=== PATIENT | male | born 1945 | race Hispanic/Latino ===

== ENCOUNTER 2024-05-06 09:25 | Emergency (ER) | payer OTHER ==
[~2024-05-06] VITALS: Ht 177.8 cm; Wt 95.3 kg
[~2024-05-06 09:25] MED LIST: LISI30TA4 PO; MONT-46 PO
--- NOTE | 2024-05-06 09:38 | EKG ---
[facility] Test Date: 2024-05-06 Test Time: 09:36:25 Pat Name: SHELLEY ALEXANDRA Department: ED Room: Gender: Male Office Secretary: [id number] : 1945 Requested By: MERLYN FOSTER Order Number: [id number] Reading MD: Measurements Intervals [place] Rate: 73 P: 11 CA: 175 QRS: -21 QRSD: 92 T: 70 QT: 403 QTc: 445 Interpretive Statements Sinus rhythm Please click the below link to view image of tracing.
[2024-05-06] MEDS: IpraTROPium/alBUTERol SULFATE 3 ML SOLUTION IH ONE (10:11)
[2024-05-06 10:15] VITALS: PULSE 71; RESP 20
--- NOTE | 2024-05-06 10:17 | HMCIMG ---
CHEST 1VW HISTORY: Cough COMPARISON: 07/25/2016 FINDINGS: A frontal projection of the chest was obtained. No acute pulmonary infiltrates is seen. The heart is borderline enlarged. Degenerative changes are seen. No evidence of aortic calcification is seen. IMPRESSION: 1. No acute pulmonary infiltrate is seen.
[2024-05-06 10:18] LABS: BASOPHILS # (AUTO) 0.05 K/uL (0.00-0.20); BASOPHILS % (AUTO) 0.9 % (0.0-5.0); EOSINOPHILS # (AUTO) 0.44 K/uL (0.00-0.70); EOSINOPHILS % (AUTO) 7.9 % (0.0-8.0); HEMATOCRIT 38.5 % (42-54); IMMATURE GRANULOCYTE ABSOLUTE 0.04 K/uL (0-1); LYMPHOCYTES # (AUTO) 1.3 K/uL (1.0-4.8); LYMPHOCYTES % (AUTO) 22.4 % (21.0-51.0); MEAN CORPUSCULAR HEMOGLOBIN 31.8 pg (27.0-33.0); MEAN CORPUSCULAR HGB CONC 34.3 g/dL (32.0-36.0); MEAN CORPUSCULAR VOLUME 92.8 fL (79-99); MONOCYTES # (AUTO) 0.5 K/uL (0.1-1.0); MONOCYTES % (AUTO) 8.2 % (3.0-13.0); NEUTROPHILS # (AUTO) 3.3 K/uL (1.8-7.7); NEUTROPHILS % (AUTO) 59.9 % (40.0-77.0); PLATELET COUNT (AUTO) 143 K/uL (130-400); RED BLOOD CELL COUNT(AUTO) 4.15 MIL/uL (4.50-6.20); RED CELL DISTRIBUTION WIDTH 14.3 % (11.0-15.5); WHITE BLOOD COUNT (AUTO) 5.6 K/uL (4.8-10.8)
--- NOTE | 2024-05-06 10:31 | ERN ---
ED Note History of Present Illness Stated Complaint: SOB, COUGH, CONGESTION, CP W/ COUGH X 2 WKS Chief Complaint: Shortness of Breath Time Seen by MD: 09:28 Dictation: 79-year-old male with history of COPD presents to the ED for evaluation of shortness a breath worsening this morning. Patient reports cough for the past 2 weeks and chest pain, but denies any fever, vomiting or any other associated s ymptoms at this time. Patient states he gets chest pain when he coughs a lot and has been taking Mucinex and NyQuil at home without improvement. Allergies: Coded Allergies: No Known Drug Allergies (Unverified Allergy, Unknown, 07/25/16) Home Meds Active Scripts Albuterol Sulfate (Ventolin Hfa/Proventil Hfa/Proair Hfa) 90 Mcg Puff, 1-2 PUFF IH Q4H PRN for SHORTNESS OF BREATH for 5 Days, #1 INH 0 Refills PHARMACY TO DISPENSE 1 INHALER FOR USE Prov:MERLYN FOSTER MD 05/06/24 Azithromycin (Azithromycin) 250 Mg Tablet, 250 MG PO AD for cough for 5 Days, #6 TAB Prov:MERLYN FOSTER MD 05/06/24 Reported Medications Montelukast Sodium (Singulair 10Mg) 10 Mg Tab, 10 MG PO AM, TAB 07/25/16 Lisinopril (Lisinopril) 30 Mg Tablet, 30 MG PO AM, TAB 07/25/16 Past Medical History Past Medical History: High Cholesterol, Hypertension Surgical History: Other Surgical History Other: KNEE, SINUS Review of System Dictation Constitutional: Negative for fever,chills, and weight loss Eyes: Negative for injury, pain,redness, and discharge ENT: Negative for injury,pain or swelling Cardiovascular: Positive for chest pain negative for palpitations, and edema Respiratory: Positive for shortness a breath and cough Abdomen/GI: Negative for abdominal pain, nausea, vomiting, diarrhea, and constipation Back: Negative for injury and pain : Negative for injury, bleeding and discharge MS/Extremity: Negative for injury and deformity Skin: Negative for rash, and discoloration Neuro: Negative for headache, weakness, numbness, tingling, and seizure Psych: Negative for suicide ideation, homicidal ideation, and hallucinations Initial Vital Sign VS Vital Signs Date Time Temp Pulse Resp B/P (MAP) Pulse Ox O2 Delivery O2 Flow Rate FiO2 05/06/24 09:26 98.2 83 16 171/90 96 Room Air 0 05/06/24 13:09 21 Physical Exam Dictation General: awake, alert, NAD Head/Face: Normocephalic, atraumatic Eyes: PERRL, EOMI, vision at baseline ENT: oral cavity clear, TMs clear, no signs of infection Neck: Trachea midline, supple, no nuchal rigidity Cardiovascular: RRR, normal S1/S2, No MRGs, no JVD Respiratory: no respiratory distress, moderate bilateral wheezes Abdomen: Soft, non-tender, non-distended, normal bowel sounds, no guarding or rebound. Skin: Warm, dry, normal turgor, no rash MS/Extremity: Pulses equal, no cyanosis, neurovascular intact, FROM Neuro: COAx4, GCS 15, strength 5/5, CN 2-12 intact, normal cerebellar exam, normal gait, Psych: Normal behavior, mood, and affect normal Results (Laboratory/Radiology) Laboratory/Radiology Laboratory Tests Test 05/06/24 10:10 05/06/24 10:19 White Blood Count 5.6 K/uL (4.8-10.8) Red Blood Count 4.15 MIL/uL (4.50-6.20) L Hemoglobin 13.2 g/dL (14.0-18.0) L Hematocrit 38.5 % (42-54) L Mean Corpuscular Volume 92.8 fL (79-99) Mean Corpuscular Hemoglobin 31.8 pg (27.0-33.0) Mean Corpuscular Hemoglobin Concent 34.3 g/dL (32.0-36.0) Red Cell Distribution Width 14.3 % (11.0-15.5) Platelet Count 143 K/uL (130-400) Mean Platelet Volume 9.2 fL (7.5-10.5) Immature Granulocyte % (Auto) 0.7 % (0-1) Neutrophils (%) (Auto) 59.9 % (40.0-77.0) Lymphocytes (%) (Auto) 22.4 % (21.0-51.0) Monocytes (%) (Auto) 8.2 % (3.0-13.0) Eosinophils (%) (Auto) 7.9 % (0.0-8.0) Basophils (%) (Auto) 0.9 % (0.0-5.0) Neutrophils # (Auto) 3.3 K/uL (1.8-7.7) Lymphocytes # (Auto) 1.3 K/uL (1.0-4.8) Monocytes # (Auto) 0.5 K/uL (0.1-1.0) Eosinophils # (Auto) 0.44 K/uL (0.00-0.70) Basophils # (Auto) 0.05 K/uL (0.00-0.20) Absolute Immature Granulocyte (auto 0.04 K/uL (0-1) Nucleated Red Blood Cells 0.0 % (0.0-0.19) Sodium Level 140 mmol/L (136-145) Potassium Level 4.2 mmol/L (3.5-5.1) Chloride Level 101 mmol/L (101-111) Carbon Dioxide Level 30 mmol/L (21-32) Blood Urea Nitrogen 20 mg/dL (7-18) H Creatinine 1.1 mg/dL (0.5-1.3) Glomerular Filtration Rate Calc 68 mL/min (>90) Random Glucose 113 mg/dL (70-105) H Lactic Acid Level 1.7 mmol/L (0.8-2.5) Total Calcium 8.8 mg/dL (8.5-10.1) Total Bilirubin 0.7 mg/dL (0.2-1.0) Direct Bilirubin 0.1 mg/dL (0.0-0.3) Aspartate Amino Transf (AST/SGOT) 20 U/L (10-37) Alanine Aminotransferase (ALT/SGPT) 30 U/L (12-78) Alkaline Phosphatase 101 U/L (50-136) Total Creatine Kinase 137 U/L (21-232) Troponin I High Sensitivity 7 ng/L (4-75) B-Type Natriuretic Peptide 45 pg/mL (0-100) Total Protein 6.9 g/dL (6.0-8.3) Albumin 3.4 g/dL (3.5-5.0) L Influenza Type A Antigen Negative For Type A Influenza Type B Antigen Negative For Type B SARS-CoV-2 Antigen (Rapid) PRESUMPTIVE NEGATIVE Labs Reviewed?: Yes EKG Comment: EKG 05/06/2024 time 9:36 a.m. ventricular rate 73, [place] 175, QRS D 92, QT 403. Sinus rhythm. No STEMI ED Course ED Course Orders Procedure Category Date Status Time 12 Lead Ekg Tracing- EKG 05/06/24 Complete Technical 09:31 Chest 1vw RAD 05/06/24 Resulted 09:31 Influenza Type A & B, LAB 05/06/24 Complete Rapid 09:37 B-Type Natriuretic LAB 05/06/24 Complete Peptide 09:37 Basic Metabolic Panel LAB 05/06/24 Complete 09:37 Cbc With Differential LAB 05/06/24 Complete 09:37 Creatine Kinase, Total LAB 05/06/24 Complete 09:37 Hepatic Function Panel LAB 05/06/24 Complete 09:37 Lactic Acid LAB 05/06/24 Complete 09:37 Blood Cult SRUTHI 05/06/24 In Process 09:37 Troponin I High LAB 05/06/24 Complete Sensitivity 09:37 Covid19 (Sars Antigen LAB 05/06/24 Complete Rapid) 09:37 Methylprednisolone PHA 05/06/24 Complete Succ 125mg (Solu-Medr 10:00 Ipratropium/Albuterol PHA 05/06/24 Complete Neb (Duoneb) 10:00 0.9% Nacl 500ml PHA 05/06/24 Complete Iv.Soln (Ns 500ml 10:00 Ondansetron 4mg Inj PHA 05/06/24 Complete (Zofran 4mg Inj) 10:52 Ondansetron 4mg Inj PHA 05/06/24 Complete (Zofran 4mg Inj) 11:00 Current Medications Medications (Trade) Dose Ordered Sig/Derick Route PRN Reason Start Time Stop Time Status Last Admin Dose Admin Albuterol (DUOneb) 1 udvial ONCE ONCE IH 05/06/24 10:00 05/06/24 10:01 DC 05/06/24 10:11 Methylprednisolone Sodium Succinate (Solu-medROL 125MG) 125 mg ONCE ONCE IVP 05/06/24 10:00 05/06/24 10:01 DC 05/06/24 10:47 Ondansetron HCl (zoFRAN 4MG INJ) 4 mg ONCE ONCE IVP 05/06/24 11:00 05/06/24 11:01 DC 05/06/24 11:30 Ondansetron HCl (zoFRAN 4MG INJ) 4 mg STK-MED ONCE .ROUTE 05/06/24 10:52 05/06/24 10:53 DC Sodium Chloride 500 ml @ 0 mls/hr ONCE ONCE IV 05/06/24 10:00 05/06/24 10:01 DC 05/06/24 10:48 Vital Signs Date Time Temp Pulse Resp B/P (MAP) Pulse Ox O2 Delivery O2 Flow Rate FiO2 05/06/24 13:09 98.8 80 18 155/75 97 Room Air* 0 21 05/06/24 10:15 71 20 05/06/24 09:26 98.2 83 16 171/90 96 Room Air 0 HEART Score Response (Comments) Value History: Low suspicion (0) 0 EKG: Normal 0 Age: > 65yrs (+2) 2 Risk Factors: 1-2 risk factors (+1) 1 Initial Troponin: Normal limit (0) 0 HEART Score Risk: Low Risk for MACE (1-3) Total 3 Medical Decision Making MDM MDM: Differential diagnosis: COPD, bronchitis, pneumonia, SOB Previous outside records reviewed: Old ER visits. Need for hospitalization: Patient does not meet criteria for hospitalization. Need for emergency major/minor surgery: No Patient's prior external medical records from other ER visits were reviewed by me as indicated. Prior testing and results from previous visits were reviewed. Prior tests were taken into account with medical decision making and resource utilization, independent historian/historians were used to obtain complete medical history. I independently interpreted the test that were performed, results were reviewed by me and considered findings on radiology if ordered. Medical management and examination interpretation discussions were had by me with other qualified healthcare professionals as indicated for the patient's care. DX & DISP Disposition: Discharge Departure Impression: Primary Impression: Acute bronchitis Condition: Stable Scripts Albuterol Sulfate (Ventolin Hfa/Proventil Hfa/Proair Hfa) 90 Mcg Puff 1-2 PUFF IH Q4H PRN for SHORTNESS OF BREATH for 5 Days, #1 INH 0 Refills PHARMACY TO DISPENSE 1 INHALER FOR USE Prov: MERLYN FOSTER MD 05/06/24 Azithromycin (Azithromycin) 250 Mg Tablet 250 MG PO AD for cough for 5 Days, #6 TAB Prov: MERLYN FOSTER MD 05/06/24 Referrals: SELF,REFERRAL (PCP) MERLYN FOSTER MD May 06, 2024 10:31
[2024-05-06 10:38] LABS: CREATININE 1.1 mg/dL (0.5-1.3); POTASSIUM 4.2 mmol/L (3.5-5.1)
[2024-05-06 10:41] LABS: ALBUMIN 3.4 g/dL (3.5-5.0); BILIRUBIN,DIRECT 0.1 mg/dL (0.0-0.3); BILIRUBIN,TOTAL 0.7 mg/dL (0.2-1.0); TOTAL PROTEIN, SERUM 6.9 g/dL (6.0-8.3)
[2024-05-06 10:42] LABS: COVID19 (SARS ANTIGEN RAPID) PRESUMPTIVE NEGATIVE (NEGATIVE); INFLUENZA TYPE A Negative For Type A (NEGATIVE); INFLUENZA TYPE B Negative For Type B (NEGATIVE)
[2024-05-06 10:44] LABS: B-TYPE NATRIURETIC PEPTIDE 45 pg/mL (0-100)
[2024-05-06] MEDS: Solu-medROL 125MG VIAL IVP ONE (10:47)
[2024-05-06] MEDS: 0.9% NACL 500ML IV.SOLN 500 ML IV ONE (10:48)
[2024-05-06] MEDS: ondanSETRON 4MG INJ IVP ONE (11:30)
[2024-05-06] MEDS: ondanSETRON 4MG INJ ONE (11:31)
[2024-05-06] MEDS ORDERED: ALBUHFA IH (12:23)
[2024-05-06] MEDS ORDERED: AZIT250T9 PO (12:23)
[2024-05-06 13:09] VITALS: BP 155/75; PULSE 80; RESP 18; TEMP 98.7; O2SAT 97
== END 2024-05-06 13:10 | disposition home or self-care (01) ==
LOC: EDH 09:25
DX: J20.9 Acute bronchitis, unspecified (principal); E78.00 Pure hypercholesterolemia, unspecified; I10 Essential (primary) hypertension; Z20.822 Contact with and (suspected) exposure to COVID-19; Z79.899 Other long term (current) drug therapy; Z98.890 Other specified postprocedural states
CPT/HCPCS: 99285; 96374; 71045; 96375; 87426; 82550; 80076; 84484; 80048; 83880; 85025; 87040 ×2; 87804 ×2; 83605; 36415; 93005; 94640; J7040; J2919; J2405